=== PATIENT | female | born 1985 | race Caucasian/White ===

== ENCOUNTER 2016-11-06 07:45 | Inpatient (IN) | payer BC ==
[2016-11-06] MEDS ORDERED: Misoprostol TAB* 100 MCG VAGINAL ONE (09:31)
[2016-11-06] MEDS ORDERED: Misoprostol TAB* 100 MCG ONE ×2 (09:35→09:37)
[2016-11-06] MEDS ORDERED: OBEPIDURAL* 250 ML ONE (18:08)
[2016-11-06 18:14] LABS: Hematocrit 42 % (35-47); Hemoglobin 13.9 g/dl (12.0-16.0); Mean Corpuscular HGB Conc 33 g/dl (31-36); Mean Corpuscular Hemoglobin 28 pg (27-31); Mean Corpuscular Volume 84 fL (80-97); Mean Platelet Volume 11 um3 (7.4-10.4); Red Blood Count 4.96 10^6/ul (4.0-5.4); Red Cell Distribution Width 14 % (10.5-15); White Blood Count 13.9 10^3/ul (3.5-10.8)
[2016-11-06] MEDS ORDERED: Sodium Citrate/Citric Acid* 15 ML UDC PO PRN (18:26)
[2016-11-06] MEDS ORDERED: Phenylephrine IV* 40 MCG/ML 10 ML SYRINGE IV PUSH PRN (18:26)
[2016-11-06] MEDS ORDERED: EPHEDrine (Pressors)* 50 MG/ML VIAL IV PUSH PRN (18:26)
[2016-11-06] MEDS ORDERED: Famotidine TAB* 20 MG PO PRN (18:26)
[2016-11-06] MEDS ORDERED: Acetaminophen TAB* 325 MG ONE (18:53)
[2016-11-06] MEDS ORDERED: Acetaminophen TAB* 325 MG PO ONE (19:38)
[2016-11-06] MEDS ORDERED: Mineral Oil Sterile, TOPICAL* 25 ML BTL ONE (20:33)
[2016-11-06 21:42] LABS: Hematocrit 41 % (35-47); Hemoglobin 13.5 g/dl (12.0-16.0); Mean Corpuscular HGB Conc 33 g/dl (31-36); Mean Corpuscular Hemoglobin 28 pg (27-31); Mean Corpuscular Volume 84 fL (80-97); Mean Platelet Volume 10 um3 (7.4-10.4); Red Blood Count 4.87 10^6/ul (4.0-5.4); Red Cell Distribution Width 14 % (10.5-15); White Blood Count 24.6 10^3/ul (3.5-10.8)
[2016-11-06 21:45] LABS: Add Diff/Slide Review? Slide Review Added; Comments Flag Yes
[2016-11-06 21:58] LABS: Albumin 2.9 g/dL (3.2-5.2); BUN/Creatinine Ratio 15.2 (8-20); Calcium 8.9 mg/dL (8.6-10.3); EGFR African American 109.2 (>60); EGFR Non-African American 84.9 (>60); Globulin 2.8 g/dL (2-4); Potassium 3.6 mmol/L (3.5-5.0); Total Bilirubin 0.4 mg/dL (0.2-1.0); Total Protein 5.7 g/dL (6.4-8.9); Uric Acid 5.9 mg/dL (2.3-6.6)
[2016-11-06 22:04] LABS: Immature Granulocytes 15 % (0-9); Metamyelocytes % 1 % (0-2); Neutrophil % 78 % (38-83); RBC Morphology Normal (Normal)
[2016-11-06] MEDS ORDERED: Calcium Carbonate CHEW TAB* 500 MG (TUMS) ONE (23:34)
[2016-11-07] MEDS ORDERED: ceFOXitin 2 GM IVPREMIX* 2 GM/50 ML BAG ONE (01:47)
[2016-11-07] MEDS ORDERED: Lidocaine 2% EPI 1:200000 MPF* 20 ML VIAL ONE (02:00)
[2016-11-07] MEDS ORDERED: Lidocaine 2% PF* 10 ML AMP ONE (02:00)
[2016-11-07] MEDS ORDERED: Phenylephrine IV* 40 MCG/ML 10 ML SYRINGE ONE (02:00)
[2016-11-07] MEDS ORDERED: Scopolamine 1.5 mg* PATCH ONE (02:00)
[2016-11-07] MEDS ORDERED: Morphine PF AMP (0.5MG/ML)* 5 MG/10 ML AMP ONE (02:01)
[2016-11-07] MEDS ORDERED: fentaNYL* 50 MCG/ML 2 ML VIAL (100 MCG VIAL) ONE (02:01)
[2016-11-07] MEDS ORDERED: Midazolam* 1 MG/ML 5 ML VIAL (5 MG) ONE (02:01)
[2016-11-07] MEDS ORDERED: KETAMINE HCL* 50 MG/ML 10 ML VIAL ONE (02:01)
[2016-11-07] MEDS ORDERED: Ibuprofen TAB* 600 MG PO PRN (02:09)
[2016-11-07] MEDS ORDERED: Glycerin ADULT SUPP PR PRN (02:09)
[2016-11-07] MEDS ORDERED: RHO D Immune Globulin (HUMAN)* 300 MCG = 1,500 I.U. INJ IM ONE (02:09)
[2016-11-07] MEDS ORDERED: oxyCODONE/Acetamin 5/325 MG* TAB PO PRN ×4 (02:09→11:00)
[2016-11-07] MEDS ORDERED: Acetaminophen TAB* 325 MG PO PRN ×2 (02:09→18:35)
[2016-11-07] MEDS ORDERED: Witch Hazel PAD* JAR TOPICAL PRN (02:09)
[2016-11-07] MEDS ORDERED: Dibucaine 1% 28.35 GM TUBE PR PRN (02:09)
[2016-11-07] MEDS ORDERED: fentaNYL* 50 MCG/ML 2 ML VIAL (100 MCG VIAL) IV PRN (02:29)
[2016-11-07] MEDS ORDERED: Naloxone* 2 MG in NS 0.9% 250 ML* 250 ML IV PRN (02:35)
[2016-11-07] MEDS ORDERED: Ondansetron INJ* 2 MG/ML VIAL IV PRN (02:35)
[2016-11-07] MEDS ORDERED: Naloxone* 0.4 MG/ML 1 ML VIAL IV PRN (02:35)
[2016-11-07] MEDS ORDERED: PROCHLORPERAZINE INJ 5 MG/ML 2 ML VIAL IV PRN (02:35)
[2016-11-07] MEDS ORDERED: Nalbuphine* 20 MG/ML 1 ML VIAL IV PRN (02:35)
[2016-11-07] MEDS ORDERED: Oxytocin in LR* 20 UNITS/1,000 ML BAG IVPB ONE (03:00)
[2016-11-07] MEDS ORDERED: Dexamethasone IV* 4 MG/ML 1 ML (4 MG) ONE (03:00)
[2016-11-07] MEDS ORDERED: Ketorolac INJ* 30 MG/ML 1 ML VIAL ONE (03:00)
[2016-11-07] MEDS ORDERED: Ondansetron INJ* 2 MG/ML VIAL ONE (03:00)
[2016-11-07] MEDS ORDERED: OXYTOCIN* 10 UNITS/ML 1 ML VIAL ONE (03:00)
[2016-11-07] MEDS: Ibuprofen TAB* 600 MG PO PRN ×2 (11:13→18:14)
[2016-11-07] MEDS: Simethicone CHEW TAB* 80 MG PO SCH ×4 (11:14→21:47)
[2016-11-07] MEDS: oxyCODONE/Acetamin 5/325 MG* TAB PO PRN ×2 (12:33→18:14)
[2016-11-07] MEDS: Docusate CAP* 100 MG PO SCH ×3 (14:54→21:47)
[2016-11-07] MEDS: OBEPIDURAL* 250 ML EPIDURAL SCH ×2 (21:55→21:56)
--- NOTE | 2016-11-07 23:47 | OP ---
CC: Alan Castillo MD * DATE OF OPERATION: 11/07/16 - ROOM #117 DATE OF : 85 SURGEON: Keeley Sims MD. PERINATOLOGY PHYSICIAN: Alan Castillo MD. ANESTHESIOLOGIST: Issa Diaz MD PRE-OP DIAGNOSIS: Intrauterine at 41-1/7th weeks, arrest of descent. POST-OP DIAGNOSIS: Intrauterine at 41-1/7th weeks, arrest of descent , delivered. OPERATIVE PROCEDURE: Primary low-transverse section. ESTIMATED BLOOD LOSS: 500 cc. URINE OUTPUT: Greater than 100 cc of concentrated yellow urine. FINDINGS: Revealed a vertex male infant with Apgars at 9 at 1 minute and 9 at 5 minutes, weight was 6 pounds 7 ounces. No meconium. No nuchal cord. Normal appearing placenta, 3-vessel cord manually extracted intact. Normal appearing tubes and ovaries bilaterally. 3 cm posterior subserosal fibroid, normal appearing placenta, 3-vessel cord, manually extracted, intact. No evidence of retained membranes or placental tissue. COMPLICATIONS: None apparent. DISPOSITION: Stable to recovery room. DESCRIPTION OF PROCEDURE: The patient was placed in dorsal lithotomy position. The abdomen was prepped and draped in a sterile standard fashion. After testing anesthesia to appropriate level, a universal time-out was performed revealing the correct procedure, patient and position. An incision was made 2 fingerbreadths above the pubic symphysis after universal time-out with a scalpel. This was carried down through the fascia. Fascia was scored in the midline. Fascial incision was extended laterally and superiorly using curved Franz scissors and blunt and sharp dissection was then carried out to separate the rectus muscle from the rectus fascia. The peritoneum was then entered bluntly. The incision was extended bluntly. Bladder blade was inserted and moist laparotomy was inserted in the colic gutter on the left. A bladder flap was created through blunt and sharp dissection. Incision was made in the lower uterine segment. This incision was extended laterally and superiorly, bluntly. The infant was found to be wedged in the LAM position. The head was delivered anterior, then posterior shoulder delivered. No nuchal cord was appreciated. Cord was then milked and then doubly clamped and cut and the was handed off to awaiting lpn care manager. Appropriate cord blood was obtained. Placenta was then manually extracted and noted to be intact with 3- vessel cord. The uterine cavity was explored and noted to be free of any membranes or placental tissue. The uterine incision itself was then reapproximated with 0 Vicryl x2, first layer running locked, second layer running imbricated. The uterus was returned intra-abdominally. Colic gutters were visualized. The laparotomy sponge was removed. Lavage was performed. Hysterotomy site was noted to be hemostatic. The peritoneum was then reapproximated using 3-0 Vicryl in a running fashion for complete occlusion of the peritoneum. The subfascial area was visualized and noted to be hemostatic. The fascia itself was reapproximated using 0 Vicryl x2 in a running fashion. The subcu was lavaged. Hemostasis assured with Bovie coagulation. Skin was then reapproximated using a 4-0 Monocryl in a subcuticular fashion. Mastisol and Steri's were then applied. The patient was taken to recovery room in stable condition. [id number]/[id number] #: [id number] MTDD
[2016-11-08] MEDS: Ibuprofen TAB* 600 MG PO PRN ×3 (00:56→16:02)
[2016-11-08] MEDS: oxyCODONE/Acetamin 5/325 MG* TAB PO PRN ×5 (00:59→21:06)
[2016-11-08 06:40] LABS: Hematocrit 35 % (35-47); Hemoglobin 11.8 g/dl (12.0-16.0); Mean Corpuscular HGB Conc 33 g/dl (31-36); Mean Corpuscular Hemoglobin 29 pg (27-31); Mean Corpuscular Volume 86 fL (80-97); Mean Platelet Volume 10 um3 (7.4-10.4); Red Blood Count 4.13 10^6/ul (4.0-5.4); Red Cell Distribution Width 15 % (10.5-15); White Blood Count 18.6 10^3/ul (3.5-10.8)
[2016-11-08] MEDS ORDERED: Ferrous Gluconate TAB* 324 MG TAB PO SCH (09:00)
--- NOTE | 2016-11-08 10:29 | PN ---
Progress Note - Progress Note Date of Service: 11/08/16 Note: Anesthesia duramorph follow up. Pt doing well, ambulating, -WINN, on oral meds for pain, her BPs were high preop, and intraop, and slowly returned to normal levels. s/p CS, continue oral meds
[2016-11-08] MEDS: Docusate CAP* 100 MG PO SCH ×3 (10:40→21:07)
[2016-11-08] MEDS: Simethicone CHEW TAB* 80 MG PO SCH ×4 (10:41→21:07)
[2016-11-08] MEDS ORDERED: RHO D Immune Globulin (HUMAN)* 300 MCG = 1,500 I.U. INJ IM ONE (18:00)
[2016-11-09] MEDS: Ibuprofen TAB* 600 MG PO PRN ×3 (01:18→17:56)
[2016-11-09] MEDS: oxyCODONE/Acetamin 5/325 MG* TAB PO PRN ×4 (01:18→21:04)
[2016-11-09] MEDS: Simethicone CHEW TAB* 80 MG PO SCH ×4 (09:07→21:06)
[2016-11-09] MEDS: Docusate CAP* 100 MG PO SCH ×3 (14:15→21:06)
--- NOTE | 2016-11-09 21:21 | PTEDU ---
Patient Name: WILLARD ALONSO WILLARD ALONSO selected video: Follow Me Mum: The Mike to Successful to view on 7 at 9:20:13 PM from [id number]
[2016-11-10] MEDS: Ibuprofen TAB* 600 MG PO PRN ×2 (01:48→11:37)
[2016-11-10] MEDS: oxyCODONE/Acetamin 5/325 MG* TAB PO PRN ×3 (01:49→11:35)
[2016-11-10] MEDS ORDERED: Scopolomine PATCH Remove* 1 NOTE MISC PATCH OFF ONE (02:30)
[2016-11-10 08:12] VITALS: BP 120/76
[2016-11-10] MEDS: Measles, Mumps,Rubella VACC* 0.5 ML/VIAL SUBCUT ONE ×2 (08:43→12:08)
[2016-11-10] MEDS: Simethicone CHEW TAB* 80 MG PO SCH (09:54)
[2016-11-10] MEDS: Docusate CAP* 100 MG PO SCH (09:54)
--- NOTE | 2016-11-10 13:27 | PTEDU ---
Patient Name: WILLARD ALONSO WILLARD ALONSO selected video: Never Ever Shake a Baby to view on 11/10/2016 at 1:25:56 PM from [email or web address] [id number]
== END 2016-11-10 17:49 | disposition home or self-care (01) | DRG 540 ==
LOC: MCHOBOUT 07:45 → MCHOB 08:42
PROVIDERS: ADMIT Nurse Practitioner; ATTEND Obstetrics & Gynecology
PROC: 3E0P7GC Introduction of Other Therapeutic Substance into Female Reproductive, Via Natural or Artificial Opening (ICD-10-PCS; principal; 2016-11-06)
PROC: 4A1HXCZ Monitoring of Products of Conception, Cardiac Rate, External Approach (ICD-10-PCS; 2016-11-06)
PROC: 10D00Z1 Extraction of Products of Conception, Low, Open Approach (ICD-10-PCS; 2016-11-07)
DX: O48.0 Post-term pregnancy (principal); D25.2 Subserosal leiomyoma of uterus; Z3A.41 41 weeks gestation of pregnancy; Z37.0 Single live birth; O62.1 Secondary uterine inertia; O76 Abnormality in fetal heart rate and rhythm complicating labor and delivery; O34.13 Maternal care for benign tumor of corpus uteri, third trimester
CPT/HCPCS: 36415; 80053; 81002; 82570; 84550; 85025; 85461; 86850; 86900; 86901; 90707; A9270-GY; J0694; J1100; J1885; J2001; J2250; J2405; J2590; J2790; J3010; S0191

== ENCOUNTER 2019-03-24 08:45 | Inpatient (IN) | payer BC ==
[2019-03-24] MEDS ORDERED: Witch Hazel PAD* JAR ONE (10:10)
[2019-03-24] MEDS ORDERED: Dibucaine 1% 28.35 GM TUBE ONE (10:10)
[2019-03-24] MEDS ORDERED: Buffered Lidocaine 1% SYRIN* 1 ML/SYRINGE INTRADERM ONE (10:43)
[2019-03-24] MEDS ORDERED: Lactated Ringers 1000 ML Bag* 1,000 ML IV ONE (10:43)
[2019-03-24] MEDS ORDERED: Witch Hazel PAD* JAR TOPICAL PRN (10:49)
[2019-03-24] MEDS ORDERED: Dibucaine 1% 28.35 GM TUBE PR PRN (10:49)
[2019-03-24] MEDS ORDERED: Glycerin ADULT SUPP PR PRN (10:49)
[2019-03-24] MEDS ORDERED: Lactated Ringers 1000 ML Bag* 1,000 ML IV SCH ×2 (11:00)
[2019-03-24] MEDS: Oxytocin in LR* 20 UNITS/1,000 ML BAG IVPB ONE ×2 (11:17→12:25)
[2019-03-24] MEDS: Carboprost Tromethamine* 250 MCG INJ ONE ×2 (11:18→11:29)
[2019-03-24] MEDS ORDERED: Misoprostol TAB* 200 MCG ONE (11:22)
[2019-03-24] MEDS ORDERED: Lidocaine 1% INJ* 10 MG/ML 30 ML SDV ONE (11:23)
[2019-03-24] MEDS ORDERED: Oxytocin in LR* 20 UNITS/1,000 ML BAG IVPB ONE (12:22)
[2019-03-24] MEDS: Ibuprofen TAB* 600 MG PO PRN ×2 (12:25→18:11)
[2019-03-24] MEDS ORDERED: Simethicone TAB* 80 MG TAB.CHEW PO SCH (12:30)
--- NOTE | 2019-03-24 12:35 | HP ---
General Information - Reason for Visit Patient is 40 4/7 weeks EGA with prior , presented to via ambulance in labor and pushing. - General Information Maternal Age: 33 Grav: 2 Para: 1 SAB: 0 IEA: 0 Estimated Due Date: 03/20/19 Determined By: LMP Gestational Age in Weeks/Days: 40 4/7 Maternal Blood Type and Rh: B Negative - Results this Serology/RPR Result: Non-Reactive Rubella Result: Immune HBsAg Result: Negative HIV Result: Negative GBS Culture Result: Negative Past Medical History Delivery History: Hx C/Section, See Records Pertinent Past Medical History: See Records Pertinent Past Surgical History: See Records Pertinent Family History: See Records - Antepartal Records Antepartal Records: Reviewed, Complicated by: - Prior desires TOLAC. Review of Systems Constitutional: Uncomfortable CV Complaint: No Respiratory: Shortness of Breath: No Gastrointestinal: No Nausea/Vomiting, Normal Bowel Movement Genitourinary: Leaking Fluid, No Dysuria, No Bleeding Musculoskeletal: No Epigastric Pain, Contractions, Pressure Neurological: No Headache, No Visual Changes Movement: Normal Exam Allergies/Adverse Reactions: Allergies No Known Allergies Allergy (Verified 11/06/16 08:51) Vital Signs 03/24/19 03/24/19 10:25 11:50 Temperature 98.2 F 99.0 F Pulse Rate 106 98 Respiratory 18 18 Rate Blood Pressure 109/59 105/63 (mmHg) - Measurements Height: 5 ft 1 in Weight: 155 lb 5.467 oz Weight in lbs: 155.753969 Body Mass Index (BMI): 29.3 Pre- Weight: 127 lb Weight Gained This : 28.341 lbs and 0.011 ozs - Exam Breast: Breast Exam Deferred CVA: No CVA Tenderness Extremities: No Edema Heart: Normal Rhythm/Heart Sounds HEENT: No Significant Findings Lungs: Clear Bilaterally Rectal: Rectal Exam Deferred Reflexes: DTR 2+ Thyroid: No Thyromegaly - Abdominal Exam Abdomen Exam: Fundal Height Consistent with Dates - Ultrasound/Biophysical Profile Ultrasound Status: Not Done Targeted Exam Findings See L&D Outpatient Visit Provider Note for Findings: N/A Cervical Exam: Complete Effacement: 100% Station: +1 Presenting Part: Vertex Membrane Status: SROM Bleeding/Discharge: None EFM Findings - External Monitor Findings Baseline Heart Rate: 140 External Monitor Findings: Accelerations Present, No Pattern of Variable or Late Decelerations Contractions: Regular, 45-90 Seconds Assessment/Plan - Assessment Term prior section in labor. - Obstetrical Risk Factors Obstetrical Risk Factors: Previous C/Section in Labor - Plan Plan: IV Hydration, Admit - Anticipate Vaginal Delivery - Date/Time of Admission Date of Admission: 03/24/19 Time of Admission: 09:00
--- NOTE | 2019-03-24 12:39 | PROCNOTE ---
[facility] OB: Delivery Note - Delivery A Date of : 03/24/19 Time of : 09:53 [place] Sex: Male Weight at : 7 lb 15 oz Score 1 Minute: 9 Score 5 Minutes: 10 Gestational Age in Weeks and Days at Delivery: 40 Weeks and 4 Days Delivery Method: Spontaneous Vaginal Labor: Spontaneous Did Patient attempt ?: Yes, Successful Amniotic Fluid: Clear Estimated Blood Loss: 450 Anesthesia/Analgesia: None Delivered By: Alan Castillo - Nursery Level of Nursery: Regular/Bedside - Perineum Perineal Injury: Perineal Laceration, 3rd Degree Extension Perineal Repair: By Delivering Practioner - Events Delivery Events of Note: Pitocin Only After Delivery - RX with Pitocin, cytotec and hemabate, Shoulder Dystocia, Supplemental O2 to Mother, Post- Bleeding - Meds Given - Risk for Falls Delivered OB Patient- Risk for Falls: Heavy Bleeding Fall Risk: Patient is at High Risk for Falls
[2019-03-24 13:25] LABS: Activated Partial Thrombo Time 23.6 seconds (26.0-38.0); Fibrinogen 405.5 mg/dL (110.8-404.3); INR 0.92 (0.82-1.09)
[2019-03-24] MEDS ORDERED: Ammonia Inhalant* 1 EA AMP ONE (14:47)
[2019-03-24 14:59] LABS: Hematocrit 33 % (35-47); Mean Corpuscular HGB Conc 34 g/dL (31-36); Mean Corpuscular Hemoglobin 27 pg (27-31); Mean Corpuscular Volume 81 fL (80-97); Platelet Count 166 10^3/uL (150-450); Red Blood Count 4.06 10^6 /uL (3.70-4.87); Red Cell Distribution Width 14 % (10-15)
[2019-03-24 15:31] LABS: ABS Lymphocytes 0.6 10^3/ul (1.0-4.8); ABS Monocytes 0.5 10^3/ul (0-0.8); ABS Neutrophils 20.9 10^3/ul (1.5-7.7); Lymphocyte % 2.6 %
[2019-03-24] MEDS: Acetaminophen TAB* 325 MG PO PRN ×2 (15:45→22:13)
[2019-03-24] MEDS: Docusate CAP* 100 MG PO SCH ×2 (15:45→22:13)
[2019-03-24 16:42] LABS: Urine Benzodiazepine Screen None Detected (None Detect); Urine Opiates Screen None Detected (None Detect)
[2019-03-25] MEDS: Ibuprofen TAB* 600 MG PO PRN ×3 (00:26→16:07)
[2019-03-25 07:57] LABS: ABS Lymphocytes 1.3 10^3/ul (1.0-4.8); ABS Monocytes 0.6 10^3/ul (0-0.8); ABS Neutrophils 11.3 10^3/ul (1.5-7.7); Eosinophil % 0.2 %; Hematocrit 29 % (35-47); Hemoglobin 9.8 g/dL (12.0-16.0); Lymphocyte % 9.6 %; Mean Corpuscular HGB Conc 34 g/dL (31-36); Mean Corpuscular Hemoglobin 28 pg (27-31); Mean Corpuscular Volume 80 fL (80-97); Mean Platelet Volume 8.4 fL (7.4-10.4); Platelet Count 165 10^3/uL (150-450); Red Blood Count 3.57 10^6 /uL (3.70-4.87); Red Cell Distribution Width 14 % (10-15); White Blood Count 13.1 10^3/uL (3.5-10.8)
[2019-03-25] MEDS ORDERED: Ferrous Gluconate TAB* 324 MG TAB PO SCH (09:00)
[2019-03-25] MEDS: Docusate CAP* 100 MG PO SCH ×3 (09:30→20:31)
[2019-03-25 20:00] VITALS: BP 115/61
[2019-03-25] MEDS: Acetaminophen TAB* 325 MG PO PRN (20:31)
[2019-03-26] MEDS: Ibuprofen TAB* 600 MG PO PRN ×2 (00:53→08:16)
[2019-03-26] MEDS: Acetaminophen TAB* 325 MG PO PRN ×2 (00:53→12:10)
[2019-03-26] MEDS: Docusate CAP* 100 MG PO SCH (08:16)
[2019-03-26] MEDS ORDERED: RHO D Immune Globulin (HUMAN)* 300 MCG = 1,500 I.U. INJ IM ONE (08:24)
== END 2019-03-26 14:30 | disposition home or self-care (01) | DRG 560 ==
LOC: MCHOBOUT 08:45 → MCHOB 08:59
PROVIDERS: ADMIT Obstetrics & Gynecology; ATTEND Obstetrics & Gynecology
PROC: 10E0XZZ Delivery of Products of Conception, External Approach (ICD-10-PCS; principal; 2019-03-24)
DX: O48.0 Post-term pregnancy (principal); O72.1 Other immediate postpartum hemorrhage; Z37.0 Single live birth; O70.20 Third degree perineal laceration during delivery, unspecified; O99.344 Other mental disorders complicating childbirth; F41.8 Other specified anxiety disorders; O34.211 Maternal care for low transverse scar from previous cesarean delivery; O66.0 Obstructed labor due to shoulder dystocia; Z3A.40 40 weeks gestation of pregnancy
CPT/HCPCS: 36415; 80307; 85025; 85384; 85461; 85610; 85730; 86850; 86900; 86901; A9270-GY; J2790